=== PATIENT | female | born 1990 | race Caucasian/White ===

== ENCOUNTER 2025-08-27 15:02 | Outpatient (RCR) | payer OTHER, SELFPAY | END 2025-08-27 23:59 | disposition home or self-care (01) | LOC: RPT 15:02 | PROVIDERS: ATTENDING PHYSICIAN Nurse Practitioner Family | DX: S76.312A Strain of muscle, fascia and tendon of the posterior muscle group at thigh level, left thigh, initial encounter (principal); S76.312D Strain of muscle, fascia and tendon of the posterior muscle group at thigh level, left thigh, subsequent encounter (principal); Z73.6 Limitation of activities due to disability; M79.605 Pain in left leg; M54.9 Dorsalgia, unspecified; M62.81 Muscle weakness (generalized); X50.9XXA Other and unspecified overexertion or strenuous movements or postures, initial encounter; Y93.F9 Activity, other caregiving; Y92.238 Other place in hospital as the place of occurrence of the external cause; Y99.0 Civilian activity done for income or pay | CPT/HCPCS: 97110; 97112; 97161; 97530 ==

== ENCOUNTER 2025-09-29 07:32 | Outpatient (RCR) | payer OTHER, SELFPAY | END 2025-09-29 23:59 | disposition home or self-care (01) | LOC: RPT 07:32 | PROVIDERS: ATTENDING PHYSICIAN Nurse Practitioner Family | DX: S76.312D Strain of muscle, fascia and tendon of the posterior muscle group at thigh level, left thigh, subsequent encounter (principal); Z73.6 Limitation of activities due to disability; M79.605 Pain in left leg; M54.9 Dorsalgia, unspecified; M62.81 Muscle weakness (generalized); X50.9XXD Other and unspecified overexertion or strenuous movements or postures, subsequent encounter; Y93.F9 Activity, other caregiving; Y92.238 Other place in hospital as the place of occurrence of the external cause; Y99.0 Civilian activity done for income or pay | CPT/HCPCS: 97110; 97140 ==